=== PATIENT | male | born 1975 | race Caucasian/White ===

== ENCOUNTER 2017-03-29 08:47 | Day surgery (SDC) | payer BC ==
--- NOTE | 2017-03-25 11:45 | HP ---
DATE OF ADMISSION: 03/29/2017 REASON FOR ADMISSION: Right inguinal hernia. BRIEF HISTORY: This is a 46-year-old gentleman with a known right inguinal hernia for the past 4 months. Over this time course, it is causing him more discomfort and he now wishes to have this repaired. He states that he has a lump in the right groin that is more noticeable after a long day of working. He has had no nausea, no vomiting, no change in bowel habits. PAST MEDICAL HISTORY: Significant for asthma. PAST SURGICAL HISTORY: Arm surgery and varicose vein surgery. ALLERGIES: None. MEDICATIONS: None. 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 He does not smoke. He drinks socially. PHYSICAL EXAMINATION: Lungs: Clear. Heart: Regular. Abdomen: Soft, nontender, nondistended. He has a moderate-sized right inguinal hernia, reducible in the supine position. On the left side there is no obvious hernia. There is some floor laxity noted. Genitalia: Scrotum and testicles are within normal limits. IMPRESSION/PLAN: Right inguinal hernia. This is a 46-year-old gentleman symptomatic from a right inguinal hernia. At this point, I would recommend repairing the hernia. The patient is a candidate for laparoscopic repair. At the time of laparoscopy, the left side will be examined. An occult hernia will be ruled out. If an occult hernia is identified, it will be repaired in the same setting. If no hernia is noted on the left, a piece of mesh will be left in the direct inguinal space for reinforcement of the left side. The indications, alternatives, and complications were discussed. Questions answered. We will plan on obtaining written consent the day of surgery. Reji TOMLINSON [id number] cc: Dr. Seo, [address] [place] [address]. Phone number [phone].
[2017-03-26 11:13] VITALS: BMI 27.8
[2017-03-29] MEDS ORDERED: TAMSULOSIN HCL 0.4 MG CAP.ER.24H (FP) ONE (09:05)
[2017-03-29] MEDS ORDERED: DEXAMETHASONE SOD PHOSPHATE/PF 10 MG/ML SDV ONE (10:58)
[2017-03-29] MEDS ORDERED: MIDAZOLAM HCL 2 MG/2 ML SINGLE DOSE VIAL ONE ×2 (10:59→11:45)
[2017-03-29] MEDS ORDERED: BUPIVACAINE HCL/PF (5 MG/ML) 30 ML VIAL IJ ONE (10:59)
[2017-03-29] MEDS ORDERED: LIDOCAINE HCL/PF 2% SDV 5ML VIAL ONE (11:33)
[2017-03-29] MEDS ORDERED: SUCCINYLCHOLINE CHLORIDE 200 MG/10 ML VIAL ONE (11:34)
[2017-03-29] MEDS ORDERED: ROCURONIUM BROMIDE 50 MG/5 ML VIAL ONE ×3 (11:34→12:06)
[2017-03-29] MEDS ORDERED: PROPOFOL 20 ML ONE (11:34)
[2017-03-29] MEDS ORDERED: ONDANSETRON 4 MG/2 ML VIAL ONE (12:10)
[2017-03-29] MEDS ORDERED: DEXAMETHASONE SOD PHOSPHATE 4 MG/1 ML VIAL ONE (12:10)
[2017-03-29] MEDS ORDERED: KETOROLAC TROMETHAMINE 30 MG/1 ML VIAL ONE (12:10)
[2017-03-29] MEDS ORDERED: NEOSTIGMINE METHYLSULFATE 0.5 MG/ML - 10 ML MDV ONE (12:38)
[2017-03-29] MEDS ORDERED: GLYCOPYRROLATE 0.2 MG/1 ML VIAL ONE ×3 (12:39)
[2017-03-29] MEDS ORDERED: oxyCODONE HCL 5 MG TABLET PO PRN (13:02)
[2017-03-29] MEDS ORDERED: PROMETHAZINE HCL 25 MG/1 ML VIAL IVPUSH PRN (13:02)
[2017-03-29] MEDS ORDERED: ONDANSETRON 4 MG/2 ML VIAL IVPUSH PRN (13:02)
[2017-03-29] MEDS ORDERED: ONDANSETRON 4 MG/2 ML VIAL IVPUSH ONE (13:20)
[2017-03-29 14:00] VITALS: TEMP 98.3
--- NOTE | 2017-03-29 14:57 | OP ---
DATE OF OPERATION: 03/29/2017 PREOPERATIVE DIAGNOSIS: Right inguinal hernia. POSTOPERATIVE DIAGNOSIS: Right indirect inguinal hernia, left direct inguinal hernia. PROCEDURE: Bilateral inguinal herniorrhaphy with mesh. SURGEON: Alexander Rodriguez MD REVENUE ACCOUNTING MANAGER: Rip Lombardi MD ANESTHESIA: Vikotr Justice MD (general). ESTIMATED BLOOD LOSS: Minimal. SPECIMENS: None. DESCRIPTION OF PROCEDURE: This is a 41-year-old gentleman with a known right inguinal hernia for the past 4 months. It is causing him more discomfort. He wished to have this repaired. Patient identified and appropriately positioned on the operating room table. After placement of general anesthesia, both groins were prepped and draped in the usual sterile fashion with ChloraPrep. In infraumbilical incision was made, deepened to subcutaneous tissue. The fascia of the rectus muscle on the right identified, divided sharply, the muscle split under direct vision. Resector balloon was placed followed by structural balloon. Also under direct vision, a suprapubic 11-mm port placed. The following structures on the left side were identified: Pubic tubercle, Jovan ligament, inferior epigastric vessels, spermatic cord and lateral abdominal wall. During this dissection, patient was noted to have an indirect inguinal hernia of a moderate-sized sac. The sac reduced back into the preperitoneal space with blunt dissection. A 4.5 x 6 piece of Versatex mesh with casas hole placed through the suprapubic port site. The mesh wrapped around the cord structures laterally to reconstruct the internal ring. Laterally, mesh anchored to the anterior abdominal wall and lateral abdominal wall. Medially, mesh anchored to anterior abdominal wall, pubic tubercle, and Jovan ligament. Upon completion of the right side, similar structures as on the left side Identified. On the left side there was no indirect component. He had a moderate-sized direct inguinal hernia. The direct hernia contained fat. This reduced back into the preperitoneal space. Another 4.5 x 6 piece of Versatex mesh with casas hole placed through superior port site. The mesh wrapped around the cord structures laterally to reconstruct the internal ring. Laterally, mesh anchored to the anterior abdominal wall and lateral abdominal wall. Medially mesh overlapped in the midline, anchored to the anterior abdominal wall, pubic tubercle, and Jovan ligament. The preperitoneal space was desufflated under direct vision, the operative field noted to be hemostatic. The fascia of both port sites was reapproximated with interrupted 0 Vicryl suture. All skin closed with 4-0 subcuticular Biosyn followed by Dermabond. At the end of the case, sponge and needle counts correct. ATTESTATION: Brief operative note handwritten on the preprinted form. [facility] queried prior to giving any narcotics. ALEXANDER RODRIGUEZ M.D. CC: Dr. Seo, [phone] /[id number]
[2017-03-29 15:17] VITALS: BP 138/83; PULSE 77
== END 2017-03-29 15:10 | disposition home or self-care (01) ==
LOC: FASU 08:47
PROVIDERS: ATTEND Surgery
PROC: 0YUA4JZ Supplement Bilateral Inguinal Region with Synthetic Substitute, Percutaneous Endoscopic Approach (ICD-10-PCS; principal; 2017-03-29 11:45)
DX: K40.20 Bilateral inguinal hernia, without obstruction or gangrene, not specified as recurrent (principal)
CPT/HCPCS: 94760